=== PATIENT | female | born 2000 | race African-American/Black ===

== ENCOUNTER 2021-09-22 13:10 | Outpatient (CLI) | payer OTHER | END 2021-09-22 13:11 | disposition home or self-care (01) | LOC: CSHULT 13:10 | PROVIDERS: ATTEND Family Medicine | DX: N63.23 Unspecified lump in the left breast, lower outer quadrant (principal) ==

== ENCOUNTER 2021-11-22 21:49 | Day surgery (SDC) | payer OTHER ==
[2021-11-22] MEDS ORDERED: hydrALAZINE 20 MG/ML VIAL SLOW IVP PRN (21:55)
[2021-11-22 22:40] VITALS: BMI 26.6
== END 2021-11-22 23:23 | disposition home or self-care (01) ==
LOC: CSHLD/OP 21:49
PROVIDERS: ATTEND Family Medicine
DX: O46.92 Antepartum hemorrhage, unspecified, second trimester (principal); O34.211 Maternal care for low transverse scar from previous cesarean delivery; Z3A.25 25 weeks gestation of pregnancy
CPT/HCPCS: 99283

== ENCOUNTER 2022-02-26 10:12 | Inpatient (IN) | payer OTHER ==
[2022-02-26] MEDS ORDERED: Bicitra 30 ML UDCUP PO PRN (10:30)
[2022-02-26] MEDS ORDERED: ceFAZolin 2 GM/Dextrose 50 ML 2 GM in Premix Bag 1 BAG IVPB SCH (10:30)
[2022-02-26] MEDS ORDERED: Lactated Ringer's 1,000 ML IV SCH (10:30)
[2022-02-26] MEDS ORDERED: Famotidine/PF 20 mg/2ml Vial SLOW IVP PRN (10:30)
[2022-02-26] MEDS ORDERED: Promethazine HCl 25 MG/ML VIAL IM PRN ×2 (10:30→18:12)
[2022-02-26] MEDS ORDERED: hydrALAZINE 20 MG/ML VIAL SLOW IVP PRN ×2 (10:30→20:23)
[2022-02-26] MEDS ORDERED: Ondansetron PF 4 MG/2 ML Vial IVP PRN ×3 (10:30→20:23)
[2022-02-26 11:01] VITALS: BMI 30.9
[2022-02-26 11:22] LABS: Hemoglobin 10.3 g/dL (12.0-15.5); Mean Corpuscular HGB CONC 31.9 g/dL (32.0-36.0); Mean Corpuscular Volume 78.4 fl (81.6-98.3); Mean Platelet Volume 11.9 fl (7.4-10.4); Platelet Count 348 10x3/uL (150-450); RBC Distribution Width 15.8 % (11.5-14.5); Red Blood Cell (RBC) Count 4.12 10x6/uL (3.90-5.03); White Blood Cell (WBC) Count 11.5 10x3/uL (3.5-10.5)
[2022-02-26 11:57] LABS: Hep B Surf Ag Non-Reactive S/CO (NonReactive)
[2022-02-26 11:58] LABS: Syphilis Antibody Nonreactive (Nonreactive); Syphilis Antibody Index 0.05 S/CO (<1.00 Non-Reactive)
[2022-02-26 12:26] LABS: HBSAg Index 0.15 S/CO (0-0.99)
[2022-02-26 13:24] LABS: SARS-CoV-2 NAA Rapid Test Not Detected (NotDetected)
[2022-02-26] MEDS ORDERED: Meperidine HCl/PF 25 MG/ML VIAL SLOW IVP PRN (18:12)
[2022-02-26] MEDS ORDERED: Naloxone HCl 0.4 mg/ml Vial IV PRN (18:12)
[2022-02-26] MEDS ORDERED: Ondansetron HCl/PF 4 MG/2 ML Vial IVP PRN (18:12)
[2022-02-26] MEDS ORDERED: Fentanyl 100 MCG/2 ML VIAL SLOW IVP PRN (18:12)
[2022-02-26] MEDS ORDERED: Naloxone HCl 0.4 mg/ml Vial IVP PRN ×2 (18:12)
[2022-02-26] MEDS ORDERED: Promethazine HCl 25 MG SUPP PR PRN (18:12)
[2022-02-26] MEDS ORDERED: Ketorolac Tromethamine 30 MG/ML VIAL IVP PRN (18:12)
[2022-02-26] MEDS ORDERED: Moisturizing Cream (Eucerin) 113 GM JAR TOP PRN (18:12)
[2022-02-26] MEDS ORDERED: diphenhydrAMINE 50 MG/ML VIAL IVP PRN (18:12)
[2022-02-26] MEDS ORDERED: Communication Order-Pharmacy FS SCH (18:15)
[2022-02-26] MEDS ORDERED: Ketorolac Tromethamine 30 MG/ML VIAL IVP SCH (18:15)
[2022-02-26] MEDS ORDERED: Bisacodyl 10 MG SUPP PR PRN (20:23)
[2022-02-26] MEDS ORDERED: diphenhydrAMINE 25 MG CAP PO PRN (20:23)
[2022-02-26] MEDS ORDERED: Boostrix 0.5 ML (Tdap) VIAL IM ONE (20:23)
[2022-02-26] MEDS: Ferrous Sulfate 325 MG TAB PO SCH (21:12)
[2022-02-26] MEDS: Docusate 100 MG CAP PO SCH (22:03)
[2022-02-27] MEDS: Ketorolac Tromethamine 30 MG/ML VIAL IVP SCH ×4 (00:28→20:05)
[2022-02-27 05:21] LABS: Hemoglobin 10.3 g/dL (12.0-15.5); Mean Corpuscular Hemoglobin 24.9 pg (27.0-33.0); Mean Platelet Volume 11.8 fl (7.4-10.4); Platelet Count 314 10x3/uL (150-450); RBC Distribution Width 15.7 % (11.5-14.5); Red Blood Cell (RBC) Count 4.13 10x6/uL (3.90-5.03); White Blood Cell (WBC) Count 13.4 10x3/uL (3.5-10.5)
[2022-02-27] MEDS: Ferrous Sulfate 325 MG TAB PO SCH ×2 (07:21→21:15)
[2022-02-27] MEDS: Docusate 100 MG CAP PO SCH ×2 (09:03→21:15)
[2022-02-27] MEDS: HYDROcodone/Acetaminophen 5/325 mg Tablet PO PRN ×2 (16:33→22:51)
[2022-02-27] MEDS: Ibuprofen 800 MG TAB PO SCH (21:15)
[2022-02-28] MEDS: Ibuprofen 800 MG TAB PO SCH ×3 (06:19→22:07)
[2022-02-28] MEDS: HYDROcodone/Acetaminophen 5/325 mg Tablet PO PRN (07:29)
[2022-02-28] MEDS: Docusate 100 MG CAP PO SCH ×2 (07:29→22:07)
[2022-02-28] MEDS: Ferrous Sulfate 325 MG TAB PO SCH ×2 (08:43→22:09)
[2022-02-28 21:04] VITALS: TEMP 98.4
[2022-03-01] MEDS: Ibuprofen 800 MG TAB PO SCH (06:09)
[2022-03-01 07:51] VITALS: BP 125/76
[2022-03-01] MEDS: HYDROcodone/Acetaminophen 5/325 mg Tablet PO PRN (08:36)
[2022-03-01] MEDS: Docusate 100 MG CAP PO SCH (08:36)
[2022-03-01] MEDS: Ferrous Sulfate 325 MG TAB PO SCH (08:37)
== END 2022-03-01 14:15 | disposition home or self-care (01) | DRG 788 ==
LOC: CSHLD 10:12 → CSHPP 20:10
PROVIDERS: ADMIT Family Medicine; ATTEND Family Medicine
PROC: 10D00Z1 Extraction of Products of Conception, Low, Open Approach (ICD-10-PCS; principal; 2022-02-26)
DX: O34.211 Maternal care for low transverse scar from previous cesarean delivery (principal); Z20.822 Contact with and (suspected) exposure to COVID-19; Z3A.39 39 weeks gestation of pregnancy; Z37.0 Single live birth
CPT/HCPCS: 36415; 51702; 85027; 86780; 86850; 86900; 86901; 87340; J0690; J1885; S0028; U0002